=== PATIENT | female | born 1940 | race Caucasian/White ===

== ENCOUNTER 2017-07-14 20:31 | Emergency (ER) | payer OTHER, MEDICARE ==
[~2017-07-14] VITALS: Ht 157.5 cm; Wt 44.5 kg
--- NOTE | 2017-07-14 22:26 | ED THROAT/DENTAL COMPLAINT ---
History of Present Illness General Chief Complaint: Sore Throat, Dental Pain Stated Complaint: SORE THROAT Source: patient Exam Limitations: no limitations Vital Signs & Intake/Output Vital Signs & Intake/Output Vital Signs Date Time Temp Pulse Resp B/P B/P Pulse O2 O2 Flow FiO2 Mean Ox Delivery Rate 07/146 Room Air 07/14 2113 97.8 68 18 181/72 98 Room Air Allergies Coded Allergies: MDX - SULFA (sulfonamide) (UNKNOWN 07/15/11) Reconcile Medications Amoxicillin/Potassium Clav (Augmentin 875-125 Tablet) 875 MG-125 MG TABLET 1 TAB PO BID EAR INFECTION Triage Note: PT TO ED C/O SORE THROAT "HURTS TO SWALLOW" FOR 2.5 DAYS AND NOW HAS LEFT EAR PAIN. AFEBRILE. SWAB SENT TO LAB Triage Nurses Notes Reviewed? yes Onset: Gradual Duration: day(s): Timing: recent history Injury Environment: home Severity: mild Modifying Factors: Improves With: rest. Associated Symptoms: LEFT EAR PAIN HPI: 76 YO woman presents with sore throat x 3 days and left ear pain. No cough, phlegm, fever. She felt slightly better after aspirin yesterday, but her sore throat returned. Past History Travel History Traveled to [place] past 21 day No Medical History Any Pertinent Medical History? see below for history Neurological: NONE EENT: NONE Cardiovascular: hypertension Respiratory: NONE Gastrointestinal: NONE Hepatic: NONE Renal: NONE Musculoskeletal: NONE Psychiatric: NONE Endocrine: NONE Surgical History Surgical History: non-contributory Psychosocial History What is your primary language Divehi Tobacco Use: Never used Family History Hx Contributory? No Review of Systems Review of Systems Constitutional: Reports: no symptoms. EENTM: Reports: no symptoms. Respiratory: Reports: no symptoms. Cardiovascular: Reports: no symptoms. GI: Reports: no symptoms. Genitourinary: Reports: no symptoms. Musculoskeletal: Reports: no symptoms. Skin: Reports: no symptoms. Neurological/Psychological: Reports: no symptoms. Hematologic/Endocrine: Reports: no symptoms. Immunologic/Allergic: Reports: no symptoms. All Other Systems: Reviewed and Negative Physical Exam Physical Exam General Appearance: well developed/nourished, no apparent distress Head: atraumatic, normal appearance Eyes: Bilateral: normal appearance. Ears: Bilateral: other (left tm w/erythema). Nose: normal inspection Mouth/Throat: pharyngeal erythema, no exudate Neck: normal inspection, supple, full range of motion Cardiovascular/Respiratory: normal breath sounds Back: normal inspection Neurologic/Psych: no motor/sensory deficits, awake, alert, oriented x 3 Skin: intact, normal color, warm/dry Core Measures ACS in differential dx? No Sepsis Present: No Sepsis Focused Exam Completed? No Progress Differential Diagnosis: pharyngitis vs otitis vs other. Plan of Care: Orders Procedure Date/time Status THROAT CULTURE W/QUICK STREP 07/15 2039 Active Current Medications Sig/David Start time Last Medication Dose Stop Time Status Admin Acetaminophen 975 MG ONCE ONE 07/14 2229 UNVr (Tylenol) 07/14 2230 Amoxicillin/ 1,000 MG ONCE ONE 07/14 2229 UNVr Clavulanate Potassium 07/14 2230 (Augmentin) Prednisone 30 MG ONCE ONE 07/14 2229 UNVr 07/14 2230 Departure Departure Disposition: HOME OR SELF CARE Condition: Stable Clinical Impression Primary Impression: Pharyngitis Secondary Impressions: Left middle ear infection Referrals: Yang HERRERA,Luisito Guerrero (PCP/Family) Departure Forms: Customer Survey General Discharge Information Prescriptions: Current Visit Scripts Amoxicillin/Potassium Clav (Augmentin 875-125 Tablet) 1 TAB PO BID #20 TAB Comments well appearing in the ED... exam suggestive of left OM w/ pharyngitis (viral?) ... rapid strep negative... will give augmentin for left OM.
[2017-07-14] MEDS ORDERED: AUGMENTIN 875-1 EACH PO (22:31)
[2017-07-14 22:58] VITALS: BP 158/66
== END 2017-07-14 22:58 ==
LOC: ERH 20:31
DX: J02.9 Acute pharyngitis, unspecified (principal); H66.92 Otitis media, unspecified, left ear
CPT/HCPCS: J3490; J7512